=== PATIENT | female | born 1995 ===

== ENCOUNTER 2021-08-29 00:20 | Emergency (ER) | payer OTHER ==
[~2021-08-29] VITALS: Ht 160 cm; Wt 57.0 kg
[2021-08-29] MEDS ORDERED: ACETAMINOPHEN 325MG TABLET PO STA (00:54)
[2021-08-29] MEDS ORDERED: IBUP-2028 MT (02:25)
[2021-08-29 02:30] VITALS: BP 120/72
== END 2021-08-29 02:40 | disposition home or self-care (01) ==
LOC: ER 00:20
DX: S09.93XA Unspecified injury of face, initial encounter (principal); V49.9XXA Car occupant (driver) (passenger) injured in unspecified traffic accident, initial encounter; Y93.89 Activity, other specified; Y92.89 Other specified places as the place of occurrence of the external cause; Y99.8 Other external cause status
CPT/HCPCS: 71045; 93005; 99283